=== PATIENT | female | born 1980 | race Caucasian/White ===

== ENCOUNTER 2024-08-23 16:57 | Outpatient (CLI) | payer OTHER, SELFPAY | END 2024-08-23 16:58 | disposition home or self-care (01) | PROVIDERS: Visit Provider Nurse Practitioner Family | DX: I10 Essential (primary) hypertension (principal); E66.3 Overweight; E78.5 Hyperlipidemia, unspecified; R25.2 Cramp and spasm; Z13.29 Encounter for screening for other suspected endocrine disorder | CPT/HCPCS: 80053; 80061; 83735; 84443 ==

== ENCOUNTER 2025-09-19 14:37 | Outpatient (CLI) | payer OTHER, SELFPAY | END 2025-09-19 14:38 | disposition home or self-care (01) | PROVIDERS: PCP Nurse Practitioner Family; Visit Provider Nurse Practitioner Family | DX: I10 Essential (primary) hypertension (principal); E78.5 Hyperlipidemia, unspecified | CPT/HCPCS: 80053; 80061 ==

== ENCOUNTER 2025-10-09 12:07 | Outpatient (CLI) | payer OTHER, SELFPAY ==
[2025-10-16 10:19] LABS: Pap Test Digital Imaging Done
[2025-10-17 16:29] LABS: HPV Source Cervix
== END 2025-10-09 12:08 | disposition home or self-care (01) ==
PROVIDERS: PCP Nurse Practitioner Family; Visit Provider Obstetrics & Gynecology
DX: N92.1 Excessive and frequent menstruation with irregular cycle (principal); Z12.4 Encounter for screening for malignant neoplasm of cervix; R12 Heartburn
CPT/HCPCS: 84443; 87624; 87625; 88141; 88142; 88175

== ENCOUNTER 2025-10-11 06:54 | Outpatient (CLI) | payer OTHER, SELFPAY ==
--- NOTE | 2025-10-11 07:15 | CRLHL7_ITS ---
For Patients: As a result of the Century Cures Act, medical imaging exams and procedure reports are released immediately into your electronic medical record. You may view this report before your referring provider. If you have questions, please contact your health care provider. INDICATION: excessive and frequent menstruation COMPARISON: None. TECHNIQUE: 2D stevens-scale and color Doppler images were acquired of the pelvis using a transabdominal and transvaginal approach. Transvaginal imaging performed to better visualize the endometrial stripe and ovaries. FINDINGS: Sonographic images demonstrate a normal size and smooth outer contour of the uterus. Uterus measures 9.1 cm in length by 4.9 cm in AP diameter by 5.4 cm in transverse dimension. Intramural fibroid measures 6 x 5 x 7 millimeters. Additional small intramural fibroid measures 14 x 8 x 11 millimeters. The endometrial lining appears normal and measures 3.2 mm in composite thickness. The right ovary measures 1.7 x 1.7 x 2.4 cm in size and the left ovary measures 2.4 x 1.9 x 1.9 cm. The ovaries demonstrate normal arterial and venous blood flow on color Doppler analysis. There are no suspicious fluid collections within the cul-de-sac. IMPRESSION: Small uterine fibroids. Endometrial thickness 3.8 millimeters. No endometrial fluid. Dictated by Buster Mclaughlin MD @ 10/11/2025 7:51:53 AM (Electronically Signed)
== END 2025-10-11 06:55 | disposition home or self-care (01) ==
PROVIDERS: PCP Nurse Practitioner Family; Visit Provider Obstetrics & Gynecology
DX: N92.1 Excessive and frequent menstruation with irregular cycle (principal); D25.9 Leiomyoma of uterus, unspecified
CPT/HCPCS: 76830; 76856